=== PATIENT | male | born 1940 | race Caucasian/White ===

== ENCOUNTER 2017-05-18 09:19 | Inpatient (IN) | payer OTHER, MEDICARE ==
[2017-05-18] VITALS (7 sets, daily range): BP systolic 127–158; BP diastolic 69–80
[~2017-05-18] VITALS: Ht 188 cm; Wt 104.5 kg
[~2017-05-18 09:19] MED LIST: ALLO100T PO; ASPI81TA52 PO; ATEN-54 PO; CHOL400T32 PO; LISI-604 PO; LOVA40TA2 PO; MULT-38 PO; [UNRECOGNIZED DRUG - CODE] PO
[2017-05-18 10:10] LABS: BASOPHILS % (AUTO) 0.1 % (0-1); EOSINOPHILS # (AUTO) 0.1 X10'3 (0-0.9); EOSINOPHILS % (AUTO) 1.9 % (0-6); HEMATOCRIT 37.7 % (42.0-52.0); HEMOGLOBIN 12.5 g/dl (14.0-17.9); LYMPHOCYTES # (AUTO) 0.5 X10'3 (1.1-4.8); LYMPHOCYTES % (AUTO) 9.6 % (21-51); MEAN CORPUSCULAR HEMOGLOBIN 31.5 PG (27.0-31.0); MEAN CORPUSCULAR HGB CONC 33.1 % (33.0-36.5); MEAN PLATELET VOLUME 7.5 FL (7.4-10.4); MONOCYTES # (AUTO) 0.4 X10'3 (0-0.9); MONOCYTES % (AUTO) 7.4 % (2-12); PLATELET COUNT 231 X10'3 (140-440); RED BLOOD COUNT 3.97 X10'6 (4.70-6.10); RED CELL DISTRIBUTION WIDTH 13.9 % (11.5-14.5); WHITE BLOOD COUNT 4.9 X10'3 (4.5-11.0)
[2017-05-18 10:15] LABS: ALANINE AMINOTRANSFERASE 22 U/L (12-78); ALBUMIN 2.9 G/DL (3.4-5.0); ALBUMIN/GLOBULIN RATIO 0.9 (1.1-1.5); ALKALINE PHOSPHATASE 64 IU/L (46-116); ANION GAP 7 (8-16); ASPARTATE AMINO TRANSFERASE 20 U/L (10-37); BILIRUBIN,TOTAL 0.5 MG/DL (0.1-1.0); BLOOD UREA NITROGEN 14 MG/DL (7-18); BUN/CREATININE RATIO 10.9 (5.4-32.0); CALCIUM 8.4 MG/DL (8.5-10.1); CHLORIDE 90 MMOL/L (99-107); CREATININE 1.29 MG/DL (0.60-1.10); GLUCOSE 152 MG/DL (70-104); POTASSIUM 5.2 MMOL/L (3.5-5.1); SODIUM 123 MMOL/L (135-145); TOTAL CARBON DIOXIDE 26.2 MMOL/L (24-32); TOTAL PROTEIN 6.2 G/DL (6.4-8.2); eGFR 54 ML/MIN
[2017-05-18 10:16] LABS: TROPONIN I < 0.04 NG/ML (0.0-0.05)
[2017-05-18 10:50] LABS: PARTIAL THROMBOPLASTIN TIME 30 SECONDS (22-32); PROTHROMBIN TIME 10.3 SECONDS (9.0-12.0)
[2017-05-18] MEDS: normal saline 1000ml 1,000 ML IV SCH (12:37)
[2017-05-18] MEDS ORDERED: magnesium 4gm in 100ml NS 100 ML IV PRN (12:40)
[2017-05-18] MEDS ORDERED: magnesium 2GM in 50ml NS 50 ML IV PRN (12:40)
[2017-05-18] MEDS ORDERED: magnesium hydroxide 30ml (MOM) UD suspension PO PRN (12:40)
[2017-05-18] MEDS ORDERED: acetaminophen 325mg tablet PO PRN ×2 (12:40→12:55)
[2017-05-18] MEDS ORDERED: mag hydrox/Alum hydrox/simeth 30ml oral suspension PO PRN (12:40)
[2017-05-18] MEDS ORDERED: ondansetron/PF 4mg/2ml inj IV PRN (12:40)
[2017-05-18] MEDS ORDERED: potassium Cl 20 mEq SR tablet PO PRN ×2 (12:40)
[2017-05-18] MEDS ORDERED: potassium Cl 40MEQ/NS 500ml 500 ML IV PRN ×2 (12:40)
[2017-05-18] MEDS ORDERED: magnesium Cl slow-release 64mg tablet PO PRN (12:40)
[2017-05-18] MEDS ORDERED: sodium polystyrene sulfonate 15gm/60ml oral suspension PO ONE (12:55)
[2017-05-18 13:18] LABS: ALBUMIN 2.8 G/DL (3.4-5.0); ANION GAP 5 (8-16); BLOOD UREA NITROGEN 13 MG/DL (7-18); BUN/CREATININE RATIO 10.6 (5.4-32.0); CALCIUM 8.5 MG/DL (8.5-10.1); CHLORIDE 90 MMOL/L (99-107); CREATININE 1.23 MG/DL (0.60-1.10); GLUCOSE 128 MG/DL (70-104); POTASSIUM 5.1 MMOL/L (3.5-5.1); SODIUM 123 MMOL/L (135-145); TOTAL CARBON DIOXIDE 27.8 MMOL/L (24-32); eGFR 57 ML/MIN
[2017-05-18 13:37] LABS: OSMOLALITY 255 MOSM/K (280-300)
[2017-05-18] MEDS: furosemide 20MG tablet PO SCH (14:00)
[2017-05-18] MEDS: metoprolol succinate 25mg (24-HOUR) SR. Tablet PO SCH (21:18)
[2017-05-18] MEDS: atorvastatin 10mg tablet PO SCH (21:18)
[2017-05-18 21:29] LABS: ALBUMIN 3.1 G/DL (3.4-5.0); ANION GAP 7 (8-16); BLOOD UREA NITROGEN 12 MG/DL (7-18); BUN/CREATININE RATIO 9.5 (5.4-32.0); CALCIUM 8.7 MG/DL (8.5-10.1); CHLORIDE 89 MMOL/L (99-107); CREATININE 1.26 MG/DL (0.60-1.10); GLUCOSE 104 MG/DL (70-104); POTASSIUM 4.5 MMOL/L (3.5-5.1); SODIUM 123 MMOL/L (135-145); TOTAL CARBON DIOXIDE 26.7 MMOL/L (24-32); eGFR 55 ML/MIN
[2017-05-19] VITALS (10 sets, daily range): BP systolic 121–168; BP diastolic 63–94
[2017-05-19] MEDS: normal saline 1000ml 1,000 ML IV SCH ×2 (02:48→16:53)
[2017-05-19 05:35] LABS: BASOPHILS % (AUTO) 0.1 % (0-1); EOSINOPHILS % (AUTO) 0 % (0-6); HEMATOCRIT 34.5 % (42.0-52.0); HEMOGLOBIN 11.6 g/dl (14.0-17.9); LYMPHOCYTES # (AUTO) 0.6 X10'3 (1.1-4.8); LYMPHOCYTES % (AUTO) 9.2 % (21-51); MEAN CORPUSCULAR HEMOGLOBIN 31.5 PG (27.0-31.0); MEAN CORPUSCULAR HGB CONC 33.6 % (33.0-36.5); MEAN CORPUSCULAR VOLUME 93.8 FL (78-98); MEAN PLATELET VOLUME 7.2 FL (7.4-10.4); MONOCYTES # (AUTO) 0.6 X10'3 (0-0.9); MONOCYTES % (AUTO) 10.2 % (2-12); NEUTROPHILS # (AUTO) 4.9 X10'3 (1.8-7.7); NEUTROPHILS % (AUTO) 80.5 % (42-75); PLATELET COUNT 252 X10'3 (140-440); RED BLOOD COUNT 3.67 X10'6 (4.70-6.10); RED CELL DISTRIBUTION WIDTH 13.4 % (11.5-14.5); WHITE BLOOD COUNT 6.1 X10'3 (4.5-11.0)
[2017-05-19 05:52] LABS: ALANINE AMINOTRANSFERASE 18 U/L (12-78); ALBUMIN 2.8 G/DL (3.4-5.0); ALBUMIN/GLOBULIN RATIO 0.9 (1.1-1.5); ALKALINE PHOSPHATASE 61 IU/L (46-116); ANION GAP 8 (8-16); ASPARTATE AMINO TRANSFERASE 22 U/L (10-37); BILIRUBIN,TOTAL 0.5 MG/DL (0.1-1.0); BLOOD UREA NITROGEN 13 MG/DL (7-18); BUN/CREATININE RATIO 10.6 (5.4-32.0); CALCIUM 8.4 MG/DL (8.5-10.1); CHLORIDE 90 MMOL/L (99-107); CREATININE 1.23 MG/DL (0.60-1.10); GLUCOSE 100 MG/DL (70-104); MAGNESIUM 1.5 MG/DL (1.5-2.4); POTASSIUM 4.6 MMOL/L (3.5-5.1); SODIUM 125 MMOL/L (135-145); TOTAL CARBON DIOXIDE 26.7 MMOL/L (24-32); TOTAL PROTEIN 5.8 G/DL (6.4-8.2); eGFR 57 ML/MIN
[2017-05-19] MEDS: K and/or MAG REPLACEMENT MC SCH (07:42)
[2017-05-19] MEDS: furosemide 20MG tablet PO SCH (07:43)
[2017-05-19] MEDS: cholecalciferol (vitamin D) 400 unit tablet PO SCH (07:43)
[2017-05-19] MEDS: aspirin 81mg tablet.DR PO SCH (07:43)
[2017-05-19] MEDS: allopurinol 100mg tablet PO SCH (07:43)
[2017-05-19] MEDS: multivitamins, therapeutics tablet PO SCH (07:43)
[2017-05-19 11:12] LABS: CLARITY,URINE CLEAR (Clear); COLOR,URINE YELLOW (Yellow); GLUCOSE, URINE NEGATIVE (Neg); KETONES,URINE NEGATIVE (Neg); LEUKOCYTE ESTERASE ,URINE NEGATIVE (Neg); NITRITES, URINE NEGATIVE (Neg); OCCULT BLOOD,URINE NEGATIVE (Neg); PROTEIN,URINE NEGATIVE (Neg); UROBILINOGEN,URINE 0.2 E.U/dL (0.2-1.0)
[2017-05-19 11:15] LABS: UA COLLECTION TYPE NON-SPECIFIED
[2017-05-19 11:24] LABS: OSMOLALITY UA 354 MOSM/K (50-1400)
[2017-05-19 11:27] LABS: SODIUM,URINE RANDOM 90 MEQ/L
[2017-05-19 13:51] LABS: ALBUMIN 2.9 G/DL (3.4-5.0); ANION GAP 8 (8-16); BLOOD UREA NITROGEN 13 MG/DL (7-18); BUN/CREATININE RATIO 11.4 (5.4-32.0); CALCIUM 8.8 MG/DL (8.5-10.1); CHLORIDE 89 MMOL/L (99-107); CREATININE 1.14 MG/DL (0.60-1.10); GLUCOSE 120 MG/DL (70-104); POTASSIUM 4.3 MMOL/L (3.5-5.1); SODIUM 123 MMOL/L (135-145); TOTAL CARBON DIOXIDE 26.5 MMOL/L (24-32); eGFR 62 ML/MIN
[2017-05-19] MEDS ORDERED: lisinopril 5mg tablet PO SCH (17:50)
[2017-05-19] MEDS: metoprolol succinate 25mg (24-HOUR) SR. Tablet PO SCH (20:07)
[2017-05-19] MEDS: atorvastatin 10mg tablet PO SCH (20:07)
[2017-05-19 21:40] LABS: ALBUMIN 2.8 G/DL (3.4-5.0); ANION GAP 7 (8-16); BLOOD UREA NITROGEN 13 MG/DL (7-18); BUN/CREATININE RATIO 10.8 (5.4-32.0); CALCIUM 8.8 MG/DL (8.5-10.1); CHLORIDE 91 MMOL/L (99-107); GLUCOSE 100 MG/DL (70-104); POTASSIUM 4.4 MMOL/L (3.5-5.1); SODIUM 127 MMOL/L (135-145); TOTAL CARBON DIOXIDE 29.2 MMOL/L (24-32); eGFR 58 ML/MIN
[2017-05-20 02:00] VITALS: BP 128/66
[2017-05-20 05:49] LABS: BASOPHILS % (AUTO) 0.1 % (0-1); EOSINOPHILS # (AUTO) 0.1 X10'3 (0-0.9); EOSINOPHILS % (AUTO) 1.5 % (0-6); HEMATOCRIT 33.4 % (42.0-52.0); HEMOGLOBIN 11.2 g/dl (14.0-17.9); LYMPHOCYTES # (AUTO) 0.5 X10'3 (1.1-4.8); MEAN CORPUSCULAR HEMOGLOBIN 31.8 PG (27.0-31.0); MEAN CORPUSCULAR HGB CONC 33.5 % (33.0-36.5); MEAN CORPUSCULAR VOLUME 94.8 FL (78-98); MEAN PLATELET VOLUME 7.4 FL (7.4-10.4); MONOCYTES # (AUTO) 0.7 X10'3 (0-0.9); MONOCYTES % (AUTO) 13.7 % (2-12); NEUTROPHILS % (AUTO) 75.7 % (42-75); PLATELET COUNT 276 X10'3 (140-440); RED BLOOD COUNT 3.52 X10'6 (4.70-6.10); RED CELL DISTRIBUTION WIDTH 13.9 % (11.5-14.5); WHITE BLOOD COUNT 5.3 X10'3 (4.5-11.0)
[2017-05-20 06:15] LABS: ALANINE AMINOTRANSFERASE 16 U/L (12-78); ALBUMIN 2.7 G/DL (3.4-5.0); ALBUMIN/GLOBULIN RATIO 0.9 (1.1-1.5); ALKALINE PHOSPHATASE 60 IU/L (46-116); ANION GAP 8 (8-16); ASPARTATE AMINO TRANSFERASE 19 U/L (10-37); BILIRUBIN,TOTAL 0.5 MG/DL (0.1-1.0); BLOOD UREA NITROGEN 11 MG/DL (7-18); CALCIUM 8.7 MG/DL (8.5-10.1); CHLORIDE 90 MMOL/L (99-107); GLUCOSE 113 MG/DL (70-104); MAGNESIUM 1.6 MG/DL (1.5-2.4); POTASSIUM 4.1 MMOL/L (3.5-5.1); SODIUM 125 MMOL/L (135-145); TOTAL CARBON DIOXIDE 26.8 MMOL/L (24-32); TOTAL PROTEIN 5.8 G/DL (6.4-8.2); eGFR 65 ML/MIN
[2017-05-20 07:00] VITALS: BP 156/75
[2017-05-20] MEDS: furosemide 20MG tablet PO SCH (08:20)
[2017-05-20] MEDS: allopurinol 100mg tablet PO SCH (08:20)
[2017-05-20] MEDS: cholecalciferol (vitamin D) 400 unit tablet PO SCH (08:20)
[2017-05-20] MEDS: multivitamins, therapeutics tablet PO SCH (08:20)
[2017-05-20] MEDS: aspirin 81mg tablet.DR PO SCH (08:20)
[2017-05-20] MEDS: K and/or MAG REPLACEMENT MC SCH (08:21)
[2017-05-20] MEDS: normal saline 1000ml 1,000 ML IV SCH (08:27)
[2017-05-20 11:00] VITALS: BP 161/79
[2017-05-20 13:35] LABS: ALBUMIN 2.8 G/DL (3.4-5.0); ANION GAP 8 (8-16); BLOOD UREA NITROGEN 12 MG/DL (7-18); BUN/CREATININE RATIO 10.4 (5.4-32.0); CALCIUM 8.8 MG/DL (8.5-10.1); CHLORIDE 92 MMOL/L (99-107); CREATININE 1.15 MG/DL (0.60-1.10); GLUCOSE 120 MG/DL (70-104); SODIUM 127 MMOL/L (135-145); eGFR 61 ML/MIN
[2017-05-20 18:00] VITALS: BP 151/78
[2017-05-20] MEDS: atorvastatin 10mg tablet PO SCH (20:27)
[2017-05-20] MEDS: metoprolol succinate 25mg (24-HOUR) SR. Tablet PO SCH (20:27)
[2017-05-20] MEDS: sodium chloride 1gm tablet PO SCH ×2 (21:00→22:19)
[2017-05-20 22:00] VITALS: BP 130/76
[2017-05-20 22:39] LABS: ALBUMIN 2.7 G/DL (3.4-5.0); ANION GAP 8 (8-16); BLOOD UREA NITROGEN 13 MG/DL (7-18); CALCIUM 8.7 MG/DL (8.5-10.1); CHLORIDE 93 MMOL/L (99-107); CREATININE 1.08 MG/DL (0.60-1.10); GLUCOSE 99 MG/DL (70-104); POTASSIUM 4.1 MMOL/L (3.5-5.1); SODIUM 127 MMOL/L (135-145); eGFR 66 ML/MIN
[2017-05-21 02:00] VITALS: BP 133/63
[2017-05-21 06:00] VITALS: BP 123/63
[2017-05-21 06:33] LABS: BASOPHILS % (AUTO) 0 % (0-1); EOSINOPHILS # (AUTO) 0.1 X10'3 (0-0.9); EOSINOPHILS % (AUTO) 1.3 % (0-6); HEMATOCRIT 32.4 % (42.0-52.0); HEMOGLOBIN 10.7 g/dl (14.0-17.9); LYMPHOCYTES # (AUTO) 0.6 X10'3 (1.1-4.8); LYMPHOCYTES % (AUTO) 7.5 % (21-51); MEAN CORPUSCULAR HEMOGLOBIN 31.3 PG (27.0-31.0); MEAN CORPUSCULAR VOLUME 94.7 FL (78-98); MEAN PLATELET VOLUME 7.1 FL (7.4-10.4); MONOCYTES # (AUTO) 0.8 X10'3 (0-0.9); NEUTROPHILS % (AUTO) 80.2 % (42-75); PLATELET COUNT 294 X10'3 (140-440); RED BLOOD COUNT 3.42 X10'6 (4.70-6.10); RED CELL DISTRIBUTION WIDTH 13.9 % (11.5-14.5); WHITE BLOOD COUNT 7.5 X10'3 (4.5-11.0)
[2017-05-21 07:01] LABS: ALANINE AMINOTRANSFERASE 17 U/L (12-78); ALBUMIN 2.5 G/DL (3.4-5.0); ALBUMIN/GLOBULIN RATIO 0.8 (1.1-1.5); ALKALINE PHOSPHATASE 62 IU/L (46-116); ANION GAP 8 (8-16); ASPARTATE AMINO TRANSFERASE 15 U/L (10-37); BILIRUBIN,TOTAL 0.9 MG/DL (0.1-1.0); BLOOD UREA NITROGEN 12 MG/DL (7-18); BUN/CREATININE RATIO 10.8 (5.4-32.0); CALCIUM 8.5 MG/DL (8.5-10.1); CHLORIDE 94 MMOL/L (99-107); CREATININE 1.11 MG/DL (0.60-1.10); GLUCOSE 88 MG/DL (70-104); MAGNESIUM 1.5 MG/DL (1.5-2.4); POTASSIUM 3.9 MMOL/L (3.5-5.1); SODIUM 127 MMOL/L (135-145); TOTAL PROTEIN 5.7 G/DL (6.4-8.2); eGFR 64 ML/MIN
[2017-05-21] MEDS: K and/or MAG REPLACEMENT MC SCH (08:00)
[2017-05-21] MEDS: cholecalciferol (vitamin D) 400 unit tablet PO SCH (08:28)
[2017-05-21] MEDS: sodium chloride 1gm tablet PO SCH (08:28)
[2017-05-21] MEDS: allopurinol 100mg tablet PO SCH (08:28)
[2017-05-21] MEDS: multivitamins, therapeutics tablet PO SCH (08:28)
[2017-05-21] MEDS: aspirin 81mg tablet.DR PO SCH (08:28)
[2017-05-21] MEDS ORDERED: SODI1TAB2 PO (11:14)
== END 2017-05-21 12:35 | disposition home or self-care (01) | DRG 644 ==
LOC: ER 09:20 → ED HOLD 12:37 → PCU 3S 13:45
PROVIDERS: ADMIT Internal Medicine; ATTEND Internal Medicine
DX: E22.2 Syndrome of inappropriate secretion of antidiuretic hormone (principal); I50.32 Chronic diastolic (congestive) heart failure; E87.5 Hyperkalemia; I11.0 Hypertensive heart disease with heart failure; E11.9 Type 2 diabetes mellitus without complications; R29.6 Repeated falls; N28.9 Disorder of kidney and ureter, unspecified; Z79.899 Other long term (current) drug therapy; Z79.82 Long term (current) use of aspirin; Z88.0 Allergy status to penicillin
CPT/HCPCS: 36415; 70450; 71010; 80048; 80053; 81003; 83735; 83880; 83930; 83935; 84300; 84484; 85025; 85610; 85730; 93005; 93880; 99285; J7030

== ENCOUNTER 2017-08-11 23:48 | Inpatient (IN) | payer MEDICARE, OTHER ==
[~2017-08-11] VITALS: Ht 188 cm; Wt 102.0 kg
[~2017-08-11 23:48] MED LIST changes: +SODI1TAB2 PO
[2017-08-12 01:59] LABS: INR 1.1 INR; PARTIAL THROMBOPLASTIN TIME 23 SECONDS (22-32)
[2017-08-12 02:01] LABS: ALANINE AMINOTRANSFERASE 30 U/L (12-78); ALBUMIN 2.7 G/DL (3.4-5.0); ALBUMIN/GLOBULIN RATIO 1.1 (1.1-1.5); ALKALINE PHOSPHATASE 55 IU/L (46-116); ANION GAP 8 (8-16); ASPARTATE AMINO TRANSFERASE 48 U/L (10-37); BILIRUBIN,TOTAL 0.6 MG/DL (0.1-1.0); BLOOD UREA NITROGEN 39 MG/DL (7-18); BUN/CREATININE RATIO 21.3 (5.4-32.0); CALCIUM 9.2 MG/DL (8.5-10.1); CHLORIDE 91 MMOL/L (99-107); CREATININE 1.83 MG/DL (0.60-1.10); GLUCOSE 157 MG/DL (70-104); MAGNESIUM 1.6 MG/DL (1.5-2.4); SODIUM 129 MMOL/L (135-145); TOTAL CARBON DIOXIDE 30.1 MMOL/L (24-32); TOTAL PROTEIN 5.2 G/DL (6.4-8.2); eGFR 36 ML/MIN
[2017-08-12 02:04] LABS: BASOPHILS % (AUTO) 0 % (0-1); EOSINOPHILS # (AUTO) 0.2 X10'3 (0-0.9); EOSINOPHILS % (AUTO) 1.3 % (0-6); HEMOGLOBIN 10.9 g/dl (14.0-17.9); LYMPHOCYTES # (AUTO) 0.4 X10'3 (1.1-4.8); LYMPHOCYTES % (AUTO) 2.6 % (21-51); MEAN CORPUSCULAR HEMOGLOBIN 31.6 PG (27.0-31.0); MEAN CORPUSCULAR HGB CONC 34.1 % (33.0-36.5); MEAN CORPUSCULAR VOLUME 92.6 FL (78-98); MEAN PLATELET VOLUME 8.1 FL (7.4-10.4); MONOCYTES # (AUTO) 0.5 X10'3 (0-0.9); MONOCYTES % (AUTO) 3.1 % (2-12); NEUTROPHILS # (AUTO) 15.6 X10'3 (1.8-7.7); PLATELET COUNT 141 X10'3 (140-440); POTASSIUM 2.9 MMOL/L (3.5-5.1); RED BLOOD COUNT 3.45 X10'6 (4.70-6.10); RED CELL DISTRIBUTION WIDTH 15.2 % (11.5-14.5); WHITE BLOOD COUNT 16.8 X10'3 (4.5-11.0)
[2017-08-12] MEDS ORDERED: normal saline 1000ML IV soln IVB ONE (03:05)
[2017-08-12] MEDS ORDERED: potassium Cl 20 mEq SR tablet PO ONE (03:40)
[2017-08-12] MEDS ORDERED: acetaminophen 325mg tablet PO PRN (04:10)
[2017-08-12] MEDS ORDERED: ondansetron/PF 4mg/2ml inj IV PRN (04:10)
[2017-08-12] MEDS ORDERED: potassium Cl 20 mEq SR tablet PO PRN ×2 (04:15)
[2017-08-12] MEDS ORDERED: potassium Cl 40MEQ/NS 500ml 500 ML IV PRN ×2 (04:15)
[2017-08-12] MEDS ORDERED: CHOL100017 (04:24)
[2017-08-12] MEDS ORDERED: SERT25TA PO (04:24)
[2017-08-12 04:34] LABS: CLARITY,URINE SLIGHTLY CLOUDY (Clear); COLOR,URINE YELLOW (Yellow); GLUCOSE, URINE NEGATIVE (Neg); KETONES,URINE NEGATIVE (Neg); LEUKOCYTE ESTERASE ,URINE NEGATIVE (Neg); NITRITES, URINE NEGATIVE (Neg); OCCULT BLOOD,URINE TRACE-LYSED (Neg); PROTEIN,URINE 30 mg/dl (Neg); UROBILINOGEN,URINE 0.2 E.U/dL (0.2-1.0)
[2017-08-12 04:35] LABS: UA COLLECTION TYPE FOLEY CATH
[2017-08-12] MEDS: normal saline 1000ml 1,000 ML IV SCH ×3 (04:41→22:08)
[2017-08-12 04:44] LABS: AMORPHOUS URATES 1+; BACTERIA,URINE NONE SEEN /HPF (Neg); HYALINE CASTS 0-3 /LPF (NEGATIVE); MUCUS STRANDS FEW /LPF (Neg); RBC,URINE 0-2 /HPF (0-2); RENAL CELLS, URINE FEW /HPF; SQUAMOUS EPITHELIAL CELL,UR FEW /LPF (FEW); WBC,URINE 0-4 /HPF (0-4)
[2017-08-12 04:45] LABS: TRANSITIONAL EPI CELLS,URINE FEW /HPF
[2017-08-12 04:47] LABS: PHOSPHORUS 2.4 MG/DL (2.3-4.5)
[2017-08-12 06:58] LABS: BASOPHILS % (AUTO) 0 % (0-1); EOSINOPHILS # (AUTO) 0.3 X10'3 (0-0.9); EOSINOPHILS % (AUTO) 1.7 % (0-6); HEMATOCRIT 30.1 % (42.0-52.0); HEMOGLOBIN 10.2 g/dl (14.0-17.9); LYMPHOCYTES # (AUTO) 0.5 X10'3 (1.1-4.8); LYMPHOCYTES % (AUTO) 2.8 % (21-51); MEAN CORPUSCULAR HEMOGLOBIN 31.4 PG (27.0-31.0); MEAN CORPUSCULAR HGB CONC 33.9 % (33.0-36.5); MEAN CORPUSCULAR VOLUME 92.7 FL (78-98); MEAN PLATELET VOLUME 7.7 FL (7.4-10.4); MONOCYTES # (AUTO) 0.5 X10'3 (0-0.9); MONOCYTES % (AUTO) 2.7 % (2-12); NEUTROPHILS # (AUTO) 15.6 X10'3 (1.8-7.7); NEUTROPHILS % (AUTO) 92.8 % (42-75); PLATELET COUNT 123 X10'3 (140-440); RED BLOOD COUNT 3.25 X10'6 (4.70-6.10); WHITE BLOOD COUNT 16.8 X10'3 (4.5-11.0)
[2017-08-12 08:23] LABS: ALBUMIN 1.9 G/DL (3.4-5.0); ANION GAP 6 (8-16); BLOOD UREA NITROGEN 40 MG/DL (7-18); BUN/CREATININE RATIO 21.2 (5.4-32.0); CALCIUM 9.4 MG/DL (8.5-10.1); CHLORIDE 92 MMOL/L (99-107); CREATININE 1.89 MG/DL (0.60-1.10); GLUCOSE 135 MG/DL (70-104); POTASSIUM 3.4 MMOL/L (3.5-5.1); SODIUM 129 MMOL/L (135-145); TOTAL CARBON DIOXIDE 31.2 MMOL/L (24-32); eGFR 35 ML/MIN
[2017-08-12] MEDS: pantoprazole 40 MG vial IV SCH ×2 (08:53→19:35)
[2017-08-12 16:49] LABS: BASOPHILS % (AUTO) 0.1 % (0-1); EOSINOPHILS # (AUTO) 0.2 X10'3 (0-0.9); EOSINOPHILS % (AUTO) 1.4 % (0-6); HEMATOCRIT 28.1 % (42.0-52.0); HEMOGLOBIN 9.6 g/dl (14.0-17.9); LYMPHOCYTES # (AUTO) 0.5 X10'3 (1.1-4.8); LYMPHOCYTES % (AUTO) 3.4 % (21-51); MEAN CORPUSCULAR HEMOGLOBIN 31.4 PG (27.0-31.0); MEAN CORPUSCULAR VOLUME 92.3 FL (78-98); MONOCYTES # (AUTO) 0.4 X10'3 (0-0.9); NEUTROPHILS # (AUTO) 13.4 X10'3 (1.8-7.7); NEUTROPHILS % (AUTO) 92.1 % (42-75); PLATELET COUNT 108 X10'3 (140-440); RED BLOOD COUNT 3.04 X10'6 (4.70-6.10); WHITE BLOOD COUNT 14.5 X10'3 (4.5-11.0)
[2017-08-12 17:45] VITALS: BP 128/79
[2017-08-12] MEDS: nutritional supplement (Nutren 2.0) 250ml bottle PO SCH (18:00)
[2017-08-12 22:00] VITALS: BP 129/91
[2017-08-13 05:00] VITALS: BP 136/83
[2017-08-13 06:15] LABS: BASOPHILS % (AUTO) 0 % (0-1); EOSINOPHILS # (AUTO) 0.1 X10'3 (0-0.9); EOSINOPHILS % (AUTO) 1.2 % (0-6); HEMATOCRIT 25.1 % (42.0-52.0); HEMOGLOBIN 8.8 g/dl (14.0-17.9); LYMPHOCYTES # (AUTO) 0.3 X10'3 (1.1-4.8); LYMPHOCYTES % (AUTO) 2.4 % (21-51); MEAN CORPUSCULAR HEMOGLOBIN 31.9 PG (27.0-31.0); MEAN CORPUSCULAR HGB CONC 34.9 % (33.0-36.5); MEAN CORPUSCULAR VOLUME 91.4 FL (78-98); MEAN PLATELET VOLUME 7.8 FL (7.4-10.4); MONOCYTES # (AUTO) 0.4 X10'3 (0-0.9); MONOCYTES % (AUTO) 3.4 % (2-12); NEUTROPHILS # (AUTO) 11.5 X10'3 (1.8-7.7); PLATELET COUNT 93 X10'3 (140-440); RED BLOOD COUNT 2.75 X10'6 (4.70-6.10); RED CELL DISTRIBUTION WIDTH 16.3 % (11.5-14.5); WHITE BLOOD COUNT 12.4 X10'3 (4.5-11.0)
[2017-08-13 06:36] LABS: ALBUMIN 2.3 G/DL (3.4-5.0); ANION GAP 4 (8-16); BLOOD UREA NITROGEN 39 MG/DL (7-18); BUN/CREATININE RATIO 23.2 (5.4-32.0); CALCIUM 9.2 MG/DL (8.5-10.1); CHLORIDE 99 MMOL/L (99-107); CREATININE 1.68 MG/DL (0.60-1.10); GLUCOSE 125 MG/DL (70-104); MAGNESIUM 1.7 MG/DL (1.5-2.4); SODIUM 133 MMOL/L (135-145); TOTAL CARBON DIOXIDE 30.5 MMOL/L (24-32); eGFR 40 ML/MIN
[2017-08-13] MEDS ORDERED: PEG 3350/Na sulf,bicarb,Cl/KCl oral sol 4 liter bottle PO ONE (07:30)
[2017-08-13] MEDS: pantoprazole 40 MG vial IV SCH ×2 (07:56→19:52)
[2017-08-13] MEDS: nutritional supplement (Nutren 2.0) 250ml bottle PO SCH ×3 (08:00→18:00)
[2017-08-13 10:00] VITALS: BP 146/81
[2017-08-13] MEDS: normal saline 1000ml 1,000 ML IV SCH (10:19)
[2017-08-13 17:24] LABS: GLUCOSE, URINE NEGATIVE (Neg); KETONES,URINE NEGATIVE (Neg); LEUKOCYTE ESTERASE ,URINE MODERATE (Neg); NITRITES, URINE POSITIVE (Neg); OCCULT BLOOD,URINE LARGE (Neg); PROTEIN,URINE >=300 mg/dl (Neg)
[2017-08-13 17:31] LABS: CLARITY,URINE Cloudy (Clear); COLOR,URINE Red (Yellow)
[2017-08-13 17:34] LABS: BACTERIA,URINE FEW /HPF (Neg); RBC,URINE TNTC /HPF (0-2); SQUAMOUS EPITHELIAL CELL,UR NONE SEEN /LPF (FEW)
[2017-08-13 18:00] VITALS: BP 155/84
[2017-08-13 18:28] LABS: UA COLLECTION TYPE FOLEY CATH
[2017-08-13 22:00] VITALS: BP 163/85
[2017-08-14 06:00] VITALS: BP 147/78
[2017-08-14 07:02] LABS: BASOPHILS % (AUTO) 0 % (0-1); EOSINOPHILS # (AUTO) 0.1 X10'3 (0-0.9); EOSINOPHILS % (AUTO) 1.2 % (0-6); HEMATOCRIT 24.9 % (42.0-52.0); HEMOGLOBIN 8.5 g/dl (14.0-17.9); LYMPHOCYTES # (AUTO) 0.3 X10'3 (1.1-4.8); LYMPHOCYTES % (AUTO) 2.8 % (21-51); MEAN CORPUSCULAR HEMOGLOBIN 31.8 PG (27.0-31.0); MEAN CORPUSCULAR HGB CONC 34.1 % (33.0-36.5); MEAN CORPUSCULAR VOLUME 93.1 FL (78-98); MEAN PLATELET VOLUME 7.2 FL (7.4-10.4); MONOCYTES # (AUTO) 0.3 X10'3 (0-0.9); MONOCYTES % (AUTO) 3.1 % (2-12); NEUTROPHILS # (AUTO) 10.1 X10'3 (1.8-7.7); NEUTROPHILS % (AUTO) 92.9 % (42-75); PLATELET COUNT 96 X10'3 (140-440); RED BLOOD COUNT 2.67 X10'6 (4.70-6.10); RED CELL DISTRIBUTION WIDTH 16.6 % (11.5-14.5); WHITE BLOOD COUNT 10.9 X10'3 (4.5-11.0)
[2017-08-14 07:14] LABS: ALBUMIN 2.2 G/DL (3.4-5.0); ANION GAP 8 (8-16); BLOOD UREA NITROGEN 30 MG/DL (7-18); BUN/CREATININE RATIO 22.2 (5.4-32.0); CALCIUM 8.7 MG/DL (8.5-10.1); CHLORIDE 99 MMOL/L (99-107); CREATININE 1.35 MG/DL (0.60-1.10); GLUCOSE 111 MG/DL (70-104); MAGNESIUM 1.6 MG/DL (1.5-2.4); POTASSIUM 3.2 MMOL/L (3.5-5.1); SODIUM 136 MMOL/L (135-145); TOTAL CARBON DIOXIDE 29.1 MMOL/L (24-32); eGFR 51 ML/MIN
[2017-08-14] MEDS: nutritional supplement (Nutren 2.0) 250ml bottle PO SCH ×3 (08:00→18:00)
[2017-08-14] MEDS: pantoprazole 40 MG vial IV SCH ×2 (08:28→21:12)
[2017-08-14 10:00] VITALS: BP 157/77
[2017-08-14] MEDS ORDERED: levoFLOXACIN-Levaquin 500mg/D5 100 ML IV ONE (12:00)
[2017-08-14] MEDS: normal saline 1000ml 1,000 ML IV SCH ×2 (15:16→22:46)
[2017-08-14] MEDS ORDERED: PEG 3350/Na sulf,bicarb,Cl/KCl oral sol 4 liter bottle PO ONE (16:00)
[2017-08-14 18:00] VITALS: BP 160/87
[2017-08-14 22:00] VITALS: BP 142/74
[2017-08-15] VITALS (17 sets, daily range): BP systolic 141–186; BP diastolic 69–103
[2017-08-15 05:46] LABS: BASOPHILS % (AUTO) 0 % (0-1); EOSINOPHILS # (AUTO) 0.1 X10'3 (0-0.9); EOSINOPHILS % (AUTO) 1.3 % (0-6); HEMATOCRIT 23.6 % (42.0-52.0); HEMOGLOBIN 8.2 g/dl (14.0-17.9); LYMPHOCYTES # (AUTO) 0.3 X10'3 (1.1-4.8); LYMPHOCYTES % (AUTO) 3.3 % (21-51); MEAN CORPUSCULAR HEMOGLOBIN 32.1 PG (27.0-31.0); MEAN CORPUSCULAR HGB CONC 34.8 % (33.0-36.5); MEAN CORPUSCULAR VOLUME 92.2 FL (78-98); MEAN PLATELET VOLUME 7.6 FL (7.4-10.4); MONOCYTES # (AUTO) 0.4 X10'3 (0-0.9); MONOCYTES % (AUTO) 3.8 % (2-12); NEUTROPHILS # (AUTO) 9.5 X10'3 (1.8-7.7); NEUTROPHILS % (AUTO) 91.6 % (42-75); PLATELET COUNT 104 X10'3 (140-440); RED BLOOD COUNT 2.56 X10'6 (4.70-6.10); RED CELL DISTRIBUTION WIDTH 16.4 % (11.5-14.5); WHITE BLOOD COUNT 10.3 X10'3 (4.5-11.0)
[2017-08-15 06:41] LABS: ALBUMIN 2.1 G/DL (3.4-5.0); ANION GAP 10 (8-16); BLOOD UREA NITROGEN 24 MG/DL (7-18); BUN/CREATININE RATIO 18.6 (5.4-32.0); CALCIUM 8.3 MG/DL (8.5-10.1); CHLORIDE 95 MMOL/L (99-107); CREATININE 1.29 MG/DL (0.60-1.10); GLUCOSE 97 MG/DL (70-104); MAGNESIUM 1.4 MG/DL (1.5-2.4); SODIUM 135 MMOL/L (135-145); TOTAL CARBON DIOXIDE 29.6 MMOL/L (24-32); eGFR 54 ML/MIN
[2017-08-15 06:43] LABS: POTASSIUM 2.5 MMOL/L (3.5-5.1)
[2017-08-15] MEDS ORDERED: magnesium 2GM in 50ml NS 50 ML IV PRN (07:40)
[2017-08-15] MEDS ORDERED: magnesium Cl slow-release 64mg tablet PO PRN (07:40)
[2017-08-15] MEDS ORDERED: magnesium 4gm in 100ml NS 100 ML IV PRN (07:40)
[2017-08-15] MEDS ORDERED: potassium Cl 40MEQ/NS 500ml 500 ML IV PRN (07:40)
[2017-08-15] MEDS: pantoprazole 40 MG vial IV SCH ×2 (07:47→20:40)
[2017-08-15] MEDS: levoFLOXACIN-Levaquin 500mg/D5 100 ML IV SCH (07:47)
[2017-08-15] MEDS: nutritional supplement (Nutren 2.0) 250ml bottle PO SCH ×3 (08:00→18:00)
[2017-08-15] MEDS: potassium Cl 40MEQ/NS 500ml 500 ML IV PRN ×2 (09:03→20:46)
[2017-08-15] MEDS ORDERED: MIDAZolam 5mg/ml 2ml vial ONE (12:50)
[2017-08-15] MEDS ORDERED: fentaNYL/PF 50MCG/1 ML 2ML syringe ONE (12:50)
[2017-08-15] MEDS ORDERED: lisinopril 10 MG tablet PO ONE (17:10)
[2017-08-15] MEDS ORDERED: hydrALAZINE 20mg/ml inj. IV ONE (17:10)
[2017-08-15] MEDS ORDERED: phenylephrine/cocoa butter (Preparation H) suppository RC PRN (17:15)
[2017-08-15] MEDS ORDERED: hydrocortisone acetate 25mg rectal suppository RC PRN ×2 (17:22)
[2017-08-15] MEDS: hydrALAZINE 20mg/ml inj. IV SCH (20:40)
[2017-08-16] MEDS: hydrALAZINE 20mg/ml inj. IV SCH ×4 (02:00→19:42)
[2017-08-16 06:00] VITALS: BP 157/80
[2017-08-16 06:26] LABS: BASOPHILS % (AUTO) 0.1 % (0-1); EOSINOPHILS # (AUTO) 0.1 X10'3 (0-0.9); EOSINOPHILS % (AUTO) 0.7 % (0-6); HEMATOCRIT 23.5 % (42.0-52.0); HEMOGLOBIN 8.2 g/dl (14.0-17.9); LYMPHOCYTES # (AUTO) 0.4 X10'3 (1.1-4.8); LYMPHOCYTES % (AUTO) 3.8 % (21-51); MEAN CORPUSCULAR HEMOGLOBIN 31.9 PG (27.0-31.0); MEAN CORPUSCULAR HGB CONC 34.7 % (33.0-36.5); MEAN CORPUSCULAR VOLUME 92.1 FL (78-98); MEAN PLATELET VOLUME 7.7 FL (7.4-10.4); MONOCYTES # (AUTO) 0.3 X10'3 (0-0.9); MONOCYTES % (AUTO) 3.6 % (2-12); NEUTROPHILS # (AUTO) 8.6 X10'3 (1.8-7.7); NEUTROPHILS % (AUTO) 91.8 % (42-75); PLATELET COUNT 112 X10'3 (140-440); RED BLOOD COUNT 2.55 X10'6 (4.70-6.10); RED CELL DISTRIBUTION WIDTH 15.9 % (11.5-14.5); WHITE BLOOD COUNT 9.4 X10'3 (4.5-11.0)
[2017-08-16 06:50] LABS: ALBUMIN 2.2 G/DL (3.4-5.0); ANION GAP 10 (8-16); BLOOD UREA NITROGEN 20 MG/DL (7-18); BUN/CREATININE RATIO 17.2 (5.4-32.0); CALCIUM 8.2 MG/DL (8.5-10.1); CHLORIDE 100 MMOL/L (99-107); CREATININE 1.16 MG/DL (0.60-1.10); GLUCOSE 90 MG/DL (70-104); MAGNESIUM 1.5 MG/DL (1.5-2.4); SODIUM 138 MMOL/L (135-145); TOTAL CARBON DIOXIDE 27.6 MMOL/L (24-32); eGFR 61 ML/MIN
[2017-08-16 06:53] LABS: POTASSIUM 2.9 MMOL/L (3.5-5.1)
[2017-08-16] MEDS: normal saline 1000ml 1,000 ML IV SCH ×4 (07:07→19:52)
[2017-08-16] MEDS: lisinopril 10 MG tablet PO SCH (08:36)
[2017-08-16] MEDS: potassium Cl 20 mEq SR tablet PO PRN ×3 (08:36→21:17)
[2017-08-16] MEDS: pantoprazole 40 MG vial IV SCH ×2 (08:36→19:42)
[2017-08-16] MEDS: levoFLOXACIN-Levaquin 500mg/D5 100 ML IV SCH (08:36)
[2017-08-16] MEDS: nutritional supplement (Nutren 2.0) 250ml bottle PO SCH ×3 (09:35→18:00)
[2017-08-16 10:00] VITALS: BP 101/61
[2017-08-16 18:43] VITALS: BP 146/77
[2017-08-16 19:47] VITALS: BP 156/85
[2017-08-16 22:01] VITALS: BP_SYST 116; BP_SYST 121; BP_SYST 137; BP_DIAS 68; BP_DIAS 72; BP_DIAS 82
[2017-08-16 22:02] VITALS: BP 137/82
[2017-08-17 02:39] VITALS: BP 150/85
[2017-08-17] MEDS: hydrALAZINE 20mg/ml inj. IV SCH ×4 (02:40→20:56)
[2017-08-17 05:30] LABS: BASOPHILS % (AUTO) 0 % (0-1); EOSINOPHILS # (AUTO) 0.2 X10'3 (0-0.9); EOSINOPHILS % (AUTO) 1.8 % (0-6); HEMATOCRIT 24.1 % (42.0-52.0); HEMOGLOBIN 8.4 g/dl (14.0-17.9); LYMPHOCYTES # (AUTO) 0.4 X10'3 (1.1-4.8); LYMPHOCYTES % (AUTO) 4.1 % (21-51); MEAN CORPUSCULAR HEMOGLOBIN 31.8 PG (27.0-31.0); MEAN CORPUSCULAR HGB CONC 34.8 % (33.0-36.5); MEAN CORPUSCULAR VOLUME 91.5 FL (78-98); MEAN PLATELET VOLUME 7.3 FL (7.4-10.4); MONOCYTES # (AUTO) 0.4 X10'3 (0-0.9); MONOCYTES % (AUTO) 3.9 % (2-12); NEUTROPHILS # (AUTO) 9.2 X10'3 (1.8-7.7); NEUTROPHILS % (AUTO) 90.2 % (42-75); PLATELET COUNT 121 X10'3 (140-440); RED BLOOD COUNT 2.63 X10'6 (4.70-6.10); RED CELL DISTRIBUTION WIDTH 16.6 % (11.5-14.5); WHITE BLOOD COUNT 10.2 X10'3 (4.5-11.0)
[2017-08-17 06:00] VITALS: BP 122/88
[2017-08-17 06:45] LABS: ALBUMIN 2.2 G/DL (3.4-5.0); ANION GAP 9 (8-16); BLOOD UREA NITROGEN 21 MG/DL (7-18); BUN/CREATININE RATIO 16.7 (5.4-32.0); CALCIUM 8.5 MG/DL (8.5-10.1); CHLORIDE 100 MMOL/L (99-107); CREATININE 1.26 MG/DL (0.60-1.10); GLUCOSE 136 MG/DL (70-104); MAGNESIUM 1.4 MG/DL (1.5-2.4); POTASSIUM 3.2 MMOL/L (3.5-5.1); SODIUM 136 MMOL/L (135-145); TOTAL CARBON DIOXIDE 26.7 MMOL/L (24-32); eGFR 55 ML/MIN
[2017-08-17] MEDS: nutritional supplement (Nutren 2.0) 250ml bottle PO SCH ×3 (08:00→20:49)
[2017-08-17] MEDS: levoFLOXACIN-Levaquin 500mg/D5 100 ML IV SCH (09:20)
[2017-08-17] MEDS: pantoprazole 40 MG vial IV SCH ×2 (09:20→20:56)
[2017-08-17] MEDS: lisinopril 10 MG tablet PO SCH (09:27)
[2017-08-17] MEDS: potassium Cl 20 mEq SR tablet PO PRN ×3 (09:32→23:22)
[2017-08-17 10:00] VITALS: BP_SYST 110; BP_SYST 121; BP_SYST 140; BP_DIAS 66; BP_DIAS 73; BP_DIAS 90
[2017-08-17 18:00] VITALS: BP 161/85
[2017-08-17] MEDS: normal saline 1000ml 1,000 ML IV SCH (20:56)
[2017-08-17 21:05] VITALS: BP 156/92
[2017-08-17 22:00] VITALS: BP 157/90
[2017-08-18 02:28] VITALS: BP 135/78
[2017-08-18] MEDS: hydrALAZINE 20mg/ml inj. IV SCH ×4 (02:28→19:56)
[2017-08-18] MEDS: normal saline 1000ml 1,000 ML IV SCH ×2 (05:35→19:56)
[2017-08-18 06:00] VITALS: BP 132/74
[2017-08-18] MEDS: nutritional supplement (Nutren 2.0) 250ml bottle PO SCH ×3 (08:00→18:00)
[2017-08-18] MEDS: levoFLOXACIN-Levaquin 500mg/D5 100 ML IV SCH (09:21)
[2017-08-18] MEDS: pantoprazole 40 MG vial IV SCH ×2 (09:21→19:56)
[2017-08-18] MEDS: lisinopril 10 MG tablet PO SCH (09:22)
[2017-08-18 10:00] VITALS: BP 153/81
[2017-08-18 18:30] VITALS: BP 165/85
[2017-08-18] MEDS: lactobacillus rhamnosus 10,000 MMU CELLS/CAPSULE PO SCH (19:56)
[2017-08-18 22:43] VITALS: BP 140/88
[2017-08-19] MEDS: hydrALAZINE 20mg/ml inj. IV SCH ×3 (02:00→13:17)
[2017-08-19 06:00] VITALS: BP 135/81
[2017-08-19] MEDS: levoFLOXACIN-Levaquin 500mg/D5 100 ML IV SCH (07:18)
[2017-08-19] MEDS: lisinopril 10 MG tablet PO SCH (07:18)
[2017-08-19] MEDS: lactobacillus rhamnosus 10,000 MMU CELLS/CAPSULE PO SCH (07:18)
[2017-08-19 08:00] VITALS: BP 135/81
[2017-08-19] MEDS: nutritional supplement (Nutren 2.0) 250ml bottle PO SCH ×2 (08:00→13:00)
[2017-08-19] MEDS: pantoprazole 40mg Tablet.DR PO SCH ×2 (08:07→16:31)
[2017-08-19] MEDS: normal saline 1000ml 1,000 ML IV SCH (09:26)
[2017-08-19 12:03] VITALS: BP 110/75
[2017-08-20] MEDS ORDERED: levoFLOXACIN 500mg tablet PO SCH (11:00)
== END 2017-08-19 17:00 | DRG 377 ==
LOC: ER 23:48 → ED HOLD 08-12 04:06 → EDBEDREQ 08-12 17:05 → ORTHO 4S 08-12 17:40
PROVIDERS: ADMIT Family Medicine; ATTEND Family Medicine
PROC: 0DBL8ZX Excision of Transverse Colon, Via Natural or Artificial Opening Endoscopic, Diagnostic (ICD-10-PCS; principal; 2017-08-15)
PROC: 0DBL8ZX Excision of Transverse Colon, Via Natural or Artificial Opening Endoscopic, Diagnostic (ICD-10-PCS; 2017-08-15)
DX: K92.2 Gastrointestinal hemorrhage, unspecified (principal); N17.0 Acute kidney failure with tubular necrosis; E43 Unspecified severe protein-calorie malnutrition; E11.22 Type 2 diabetes mellitus with diabetic chronic kidney disease; E22.2 Syndrome of inappropriate secretion of antidiuretic hormone; D64.9 Anemia, unspecified; E86.0 Dehydration; N39.0 Urinary tract infection, site not specified; S00.03XA Contusion of scalp, initial encounter; N18.4 Chronic kidney disease, stage 4 (severe); D62 Acute posthemorrhagic anemia; B96.4 Proteus (mirabilis) (morganii) as the cause of diseases classified elsewhere; E87.6 Hypokalemia; D18.1 Lymphangioma, any site; K64.8 Other hemorrhoids; D12.3 Benign neoplasm of transverse colon; K57.30 Diverticulosis of large intestine without perforation or abscess without bleeding; I12.9 Hypertensive chronic kidney disease with stage 1 through stage 4 chronic kidney disease, or unspecified chronic kidney disease; I95.1 Orthostatic hypotension; K63.5 Polyp of colon; N40.0 Benign prostatic hyperplasia without lower urinary tract symptoms; R29.6 Repeated falls; S51.811A Laceration without foreign body of right forearm, initial encounter; W18.39XA Other fall on same level, initial encounter; Z88.0 Allergy status to penicillin; Z79.899 Other long term (current) drug therapy; Z79.82 Long term (current) use of aspirin; Y92.091 Bathroom in other non-institutional residence as the place of occurrence of the external cause; Y93.01 Activity, walking, marching and hiking; Y99.8 Other external cause status; Z68.28 Body mass index [BMI] 28.0-28.9, adult
CPT/HCPCS: 36415; 45380; 45385; 70450; 71045; 80048; 80053; 81001; 83605; 83735; 84100; 84132; 84145; 85025; 85610; 85730; 86885; 86900; 86901; 87040; 87070; 87077; 87088; 87186; 93005; 96360; 97110; 97116; 97162; 97530; 99285; A4315; A4353; A4620; A6212; C9113; G0500; J0360; J1956; J2250; J3010; J3480; J7030

== ENCOUNTER 2017-09-04 11:17 | Inpatient (IN) | payer MEDICARE, OTHER ==
[~2017-09-04] VITALS: Ht 188 cm; Wt 94.9 kg
[~2017-09-04 11:17] MED LIST changes: -ALLO100T PO; -ATEN-54 PO; +CHOL100017; -LOVA40TA2 PO; +SERT25TA PO; -[UNRECOGNIZED DRUG - CODE] PO
[2017-09-04] MEDS ORDERED: normal saline 1000ML IV soln IVB ONE (11:45)
[2017-09-04 12:06] LABS: BASOPHILS % (AUTO) 0.1 % (0-1); EOSINOPHILS # (AUTO) 0.2 X10'3 (0-0.9); EOSINOPHILS % (AUTO) 1.7 % (0-6); HEMATOCRIT 23.7 % (42.0-52.0); HEMOGLOBIN 8.1 g/dl (14.0-17.9); LYMPHOCYTES # (AUTO) 0.4 X10'3 (1.1-4.8); LYMPHOCYTES % (AUTO) 2.9 % (21-51); MEAN CORPUSCULAR HEMOGLOBIN 32.7 PG (27.0-31.0); MEAN CORPUSCULAR HGB CONC 34.3 % (33.0-36.5); MEAN CORPUSCULAR VOLUME 95.3 FL (78-98); MEAN PLATELET VOLUME 7.7 FL (7.4-10.4); MONOCYTES # (AUTO) 0.5 X10'3 (0-0.9); MONOCYTES % (AUTO) 3.2 % (2-12); NEUTROPHILS # (AUTO) 13.2 X10'3 (1.8-7.7); NEUTROPHILS % (AUTO) 92.1 % (42-75); PLATELET COUNT 64 X10'3 (140-440); RED BLOOD COUNT 2.49 X10'6 (4.70-6.10); WHITE BLOOD COUNT 14.4 X10'3 (4.5-11.0)
[2017-09-04 12:20] LABS: ANISOCYTOSIS 2+; PLATELET ESTIMATE DECREASED; TOTAL CELLS COUNTED 100
[2017-09-04 12:21] LABS: POLYCHROMASIA FEW; SCHISTOCYTES FEW
[2017-09-04 12:32] LABS: ALANINE AMINOTRANSFERASE 68 U/L (12-78); ALBUMIN 2.5 G/DL (3.4-5.0); ALBUMIN/GLOBULIN RATIO 0.9 (1.1-1.5); ALKALINE PHOSPHATASE 127 IU/L (46-116); ANION GAP 5 (8-16); ASPARTATE AMINO TRANSFERASE 81 U/L (10-37); BILIRUBIN,TOTAL 1.4 MG/DL (0.1-1.0); BLOOD UREA NITROGEN 25 MG/DL (7-18); BUN/CREATININE RATIO 18.1 (5.4-32.0); CHLORIDE 84 MMOL/L (99-107); CREATININE 1.38 MG/DL (0.60-1.10); GLUCOSE 159 MG/DL (70-104); MAGNESIUM 1.5 MG/DL (1.5-2.4); TOTAL CARBON DIOXIDE 30.7 MMOL/L (24-32); TOTAL PROTEIN 5.2 G/DL (6.4-8.2); eGFR 50 ML/MIN
[2017-09-04 12:44] LABS: SODIUM 120 MMOL/L (135-145)
[2017-09-04] MEDS ORDERED: LIDOcaine 2% 10ml TOPICAL JELLY (Urojet) MM ONE (12:45)
[2017-09-04] MEDS ORDERED: CefTRIAXone 2gm/D5W 50ml 50 ML IV ONE (13:50)
[2017-09-04] MEDS ORDERED: ondansetron/PF 4mg/2ml inj IV PRN (14:35)
[2017-09-04] MEDS ORDERED: dextrose 50%-water 50ml dispensing syringe IV PRN ×2 (14:35)
[2017-09-04] MEDS ORDERED: magnesium 2GM in 50ml NS 50 ML IV PRN (14:35)
[2017-09-04] MEDS ORDERED: magnesium Cl slow-release 64mg tablet PO PRN (14:35)
[2017-09-04] MEDS ORDERED: magnesium 4gm in 100ml NS 100 ML IV PRN (14:35)
[2017-09-04] MEDS ORDERED: mag hydrox/Alum hydrox/simeth 30ml oral suspension PO PRN (14:35)
[2017-09-04] MEDS ORDERED: potassium Cl 40MEQ/NS 500ml 500 ML IV PRN ×2 (14:35)
[2017-09-04] MEDS ORDERED: HYDROcodone/acetaminophen 5mg/325mg tablet PO PRN (14:35)
[2017-09-04] MEDS ORDERED: magnesium hydroxide 30ml (MOM) UD suspension PO PRN (14:35)
[2017-09-04] MEDS ORDERED: acetaminophen 325mg tablet PO PRN ×2 (14:35)
[2017-09-04] MEDS ORDERED: dextrose ORAL solution 15 GM/59 ML bottle PO PRN ×2 (14:35)
[2017-09-04] MEDS ORDERED: potassium Cl 20 mEq SR tablet PO PRN ×2 (14:35)
[2017-09-04] MEDS ORDERED: glucagon, human recombinant 1mg kit SUBCUT PRN (14:35)
[2017-09-04] MEDS ORDERED: MESSAGE TO PHARMACY PO ONE (14:35)
[2017-09-04 14:56] LABS: % IRON SATURATION 32 % (11-46); IRON 47 UG/DL (53-167); TOTAL IRON BINDING CAPACITY 145 UG/DL (259-388)
[2017-09-04 15:04] LABS: HEMOGLOBIN A1C 5.9 % (4.5-6.2)
[2017-09-04 15:15] LABS: OSMOLALITY 252 MOSM/K (280-300)
[2017-09-04] MEDS: hydrALAZINE 20mg/ml inj. IV SCH ×2 (15:18→21:35)
[2017-09-04 15:28] LABS: CHOL/HDL RATIO 3.7 (0.00-4.99); CHOLESTEROL 228 MG/DL (0-200); HDL CHOLESTEROL 62 MG/DL (35-60); LDL CHOLESTEROL 114 MG/DL (50-100); TRIGLYCERIDES 161 MG/DL (20-135)
[2017-09-04 15:33] LABS: SODIUM 120 MMOL/L (135-145)
[2017-09-04 16:07] LABS: CLARITY,URINE CLEAR (Clear); COLOR,URINE YELLOW (Yellow); GLUCOSE, URINE 100 mg/dl (Neg); KETONES,URINE NEGATIVE (Neg); LEUKOCYTE ESTERASE ,URINE NEGATIVE (Neg); NITRITES, URINE NEGATIVE (Neg); OCCULT BLOOD,URINE TRACE-LYSED (Neg); PROTEIN,URINE 30 mg/dl (Neg); UROBILINOGEN,URINE 0.2 E.U/dL (0.2-1.0)
[2017-09-04 16:13] LABS: UA COLLECTION TYPE FOLEY CATH
[2017-09-04 16:14] LABS: BACTERIA,URINE NONE SEEN /HPF (Neg); MUCUS STRANDS FEW /LPF (Neg); RBC,URINE NONE SEEN /HPF (0-2); SQUAMOUS EPITHELIAL CELL,UR NONE SEEN /LPF (FEW); WBC,URINE 0-4 /HPF (0-4)
[2017-09-04 17:38] VITALS: BP 151/88
[2017-09-04 17:54] VITALS: BP 151/88
[2017-09-04 20:00] VITALS: BP_SYST 126; BP_SYST 139; BP_DIAS 64; BP_DIAS 72
[2017-09-04 21:00] VITALS: BP 125/84
[2017-09-04] MEDS: insulin glargine (Lantus) pen - multi-dose SQ SCH (21:33)
[2017-09-04] MEDS: sodium chloride 1gm tablet PO SCH (21:34)
[2017-09-05] VITALS (9 sets, daily range): BP systolic 116–142; BP diastolic 68–89
[2017-09-05] MEDS: hydrALAZINE 20mg/ml inj. IV SCH ×4 (02:48→20:59)
[2017-09-05 06:12] LABS: BASOPHILS % (AUTO) 0 % (0-1); EOSINOPHILS % (AUTO) 0 % (0-6); HEMOGLOBIN 7.9 g/dl (14.0-17.9); LYMPHOCYTES # (AUTO) 0.4 X10'3 (1.1-4.8); LYMPHOCYTES % (AUTO) 2.6 % (21-51); MEAN CORPUSCULAR HEMOGLOBIN 32.8 PG (27.0-31.0); MEAN CORPUSCULAR HGB CONC 34.4 % (33.0-36.5); MEAN CORPUSCULAR VOLUME 95.3 FL (78-98); MEAN PLATELET VOLUME 8.2 FL (7.4-10.4); MONOCYTES # (AUTO) 0.4 X10'3 (0-0.9); MONOCYTES % (AUTO) 2.7 % (2-12); NEUTROPHILS # (AUTO) 13.3 X10'3 (1.8-7.7); NEUTROPHILS % (AUTO) 94.7 % (42-75); PLATELET COUNT 57 X10'3 (140-440); RED BLOOD COUNT 2.42 X10'6 (4.70-6.10); RED CELL DISTRIBUTION WIDTH 18.5 % (11.5-14.5)
[2017-09-05 06:44] LABS: ALANINE AMINOTRANSFERASE 67 U/L (12-78); ALBUMIN 2.4 G/DL (3.4-5.0); ALKALINE PHOSPHATASE 117 IU/L (46-116); ANION GAP 8 (8-16); ASPARTATE AMINO TRANSFERASE 80 U/L (10-37); BLOOD UREA NITROGEN 25 MG/DL (7-18); BUN/CREATININE RATIO 18.5 (5.4-32.0); CALCIUM 9.1 MG/DL (8.5-10.1); CHLORIDE 86 MMOL/L (99-107); CREATININE 1.35 MG/DL (0.60-1.10); GLUCOSE 139 MG/DL (70-104); MAGNESIUM 1.5 MG/DL (1.5-2.4); POTASSIUM 4.2 MMOL/L (3.5-5.1); SODIUM 122 MMOL/L (135-145); TOTAL CARBON DIOXIDE 28.1 MMOL/L (24-32); TOTAL PROTEIN 4.8 G/DL (6.4-8.2); eGFR 51 ML/MIN
[2017-09-05 06:56] LABS: TOTAL CELLS COUNTED 100
[2017-09-05 06:58] LABS: ANISOCYTOSIS 2+; PLATELET ESTIMATE DECREASED; POLYCHROMASIA 2+
[2017-09-05 07:05] LABS: ACANTHOCYTES 1+; HYPOCHROMASIA 1+; SCHISTOCYTES FEW; SMUDGE CELLS FEW
[2017-09-05] MEDS: lisinopril 5mg tablet PO SCH (07:56)
[2017-09-05] MEDS: multivitamins, therapeutics tablet PO SCH (07:56)
[2017-09-05] MEDS: sodium chloride 1gm tablet PO SCH ×3 (07:56→20:51)
[2017-09-05] MEDS: K and/or MAG REPLACEMENT MC SCH (08:00)
[2017-09-05] MEDS ORDERED: CefTRIAXone 2gm/D5W 50ml 50 ML IV SCH (08:00)
[2017-09-05] MEDS ORDERED: non-formulary drug (Multivitamin (Daily Multiple Vitamin) 1 TAB) PO SCH (08:00)
[2017-09-05] MEDS ORDERED: CefTRIAXone inj 2,000 MG in normal saline 100ml IV soln 100 ML IV SCH (08:00)
[2017-09-05] MEDS: aspirin 81mg tablet.DR PO SCH (08:00)
[2017-09-05] MEDS ORDERED: levoFLOXACIN-Levaquin 750MG/D5 150 ML IV STA (09:35)
[2017-09-05 10:53] LABS: RED BLOOD COUNT 2.39 X10'6 (4.70-6.10); RETICULOCYTE % (AUTO) 4.6 % (0.5-1.5)
[2017-09-05] MEDS: insulin Lispro (HumaLOG) vial - multi-dose SQ SCH (11:05)
[2017-09-05] MEDS: diatr meglu/diatrizoate 30ml oral sol.-(3 dose) bottle PO SCH ×3 (13:02→18:48)
[2017-09-05] MEDS: vancomycin/NS 1 GM ADD-VANTAGE 250 ML IV SCH ×2 (13:47→17:12)
[2017-09-05] MEDS: HYDROcodone/acetaminophen 10/325mg tab PO PRN (16:07)
[2017-09-05] MEDS: vancomycin inj 1,250 MG in normal saline 250ml IV soln 250 ML IV SCH (16:48)
[2017-09-05] MEDS ORDERED: iohexol 300mg/ml 100ml inj. ONE (18:06)
[2017-09-05] MEDS ORDERED: ipratropium/albuterol 3ml nebule NEB PRN (18:25)
[2017-09-05] MEDS: tamsulosin 0.4mg capsule PO SCH (20:51)
[2017-09-05] MEDS: lactobacillus rhamnosus 10,000 MMU CELLS/CAPSULE PO SCH (20:51)
[2017-09-05] MEDS: iron polysaccharide complex 150mg capsule PO SCH (20:51)
[2017-09-05] MEDS: insulin glargine (Lantus) pen - multi-dose SQ SCH (21:00)
[2017-09-06] MEDS: HYDROcodone/acetaminophen 10/325mg tab PO PRN ×2 (00:34→04:35)
[2017-09-06] MEDS: vancomycin inj 1,250 MG in normal saline 250ml IV soln 250 ML IV SCH ×2 (00:35→14:00)
[2017-09-06] MEDS: hydrALAZINE 20mg/ml inj. IV SCH ×3 (02:48→14:00)
[2017-09-06 02:54] VITALS: BP 105/74
[2017-09-06 03:07] LABS: BASOPHILS % (AUTO) 0 % (0-1); EOSINOPHILS # (AUTO) 0.1 X10'3 (0-0.9); EOSINOPHILS % (AUTO) 1.1 % (0-6); HEMOGLOBIN 7.6 g/dl (14.0-17.9); LYMPHOCYTES # (AUTO) 0.3 X10'3 (1.1-4.8); LYMPHOCYTES % (AUTO) 2.7 % (21-51); MEAN CORPUSCULAR HEMOGLOBIN 33.1 PG (27.0-31.0); MEAN CORPUSCULAR VOLUME 94.6 FL (78-98); MEAN PLATELET VOLUME 7.9 FL (7.4-10.4); MONOCYTES # (AUTO) 0.4 X10'3 (0-0.9); NEUTROPHILS # (AUTO) 11.5 X10'3 (1.8-7.7); NEUTROPHILS % (AUTO) 93.2 % (42-75); PLATELET COUNT 53 X10'3 (140-440); RED BLOOD COUNT 2.29 X10'6 (4.70-6.10); WHITE BLOOD COUNT 12.3 X10'3 (4.5-11.0)
[2017-09-06 03:19] LABS: HEMATOCRIT 21.6 % (42.0-52.0)
[2017-09-06 03:25] LABS: ALANINE AMINOTRANSFERASE 56 U/L (12-78); ALBUMIN 2.2 G/DL (3.4-5.0); ALBUMIN/GLOBULIN RATIO 0.9 (1.1-1.5); ALKALINE PHOSPHATASE 115 IU/L (46-116); ANION GAP 10 (8-16); ASPARTATE AMINO TRANSFERASE 86 U/L (10-37); BLOOD UREA NITROGEN 26 MG/DL (7-18); BUN/CREATININE RATIO 17.8 (5.4-32.0); CALCIUM 9.2 MG/DL (8.5-10.1); CHLORIDE 87 MMOL/L (99-107); CREATININE 1.46 MG/DL (0.60-1.10); GLUCOSE 134 MG/DL (70-104); MAGNESIUM 1.5 MG/DL (1.5-2.4); POTASSIUM 4.2 MMOL/L (3.5-5.1); SODIUM 124 MMOL/L (135-145); TOTAL CARBON DIOXIDE 26.9 MMOL/L (24-32); TOTAL PROTEIN 4.7 G/DL (6.4-8.2); eGFR 47 ML/MIN
[2017-09-06 08:00] VITALS: BP_SYST 127; BP_SYST 132; BP_DIAS 62; BP_DIAS 70
[2017-09-06] MEDS: K and/or MAG REPLACEMENT MC SCH (08:00)
[2017-09-06] MEDS: lactobacillus rhamnosus 10,000 MMU CELLS/CAPSULE PO SCH ×2 (08:52→21:54)
[2017-09-06] MEDS: atorvastatin 20mg tablet PO SCH (08:52)
[2017-09-06] MEDS: lisinopril 5mg tablet PO SCH (08:52)
[2017-09-06] MEDS: multivitamins, therapeutics tablet PO SCH (08:52)
[2017-09-06] MEDS: aspirin 81mg tablet.DR PO SCH (08:52)
[2017-09-06] MEDS: levoFLOXACIN-Levaquin 750MG/D5 150 ML IV SCH (08:53)
[2017-09-06] MEDS: iron polysaccharide complex 150mg capsule PO SCH ×2 (09:16→21:54)
[2017-09-06] MEDS: sodium chloride 1gm tablet PO SCH ×3 (09:16→21:54)
[2017-09-06 10:03] VITALS: BP 132/70
[2017-09-06 11:48] VITALS: BP 100/63
[2017-09-06] MEDS: insulin Lispro (HumaLOG) vial - multi-dose SQ SCH (13:55)
[2017-09-06] MEDS: finasteride 5mg tablet PO SCH (14:00)
[2017-09-06] MEDS ORDERED: hydrALAZINE 20mg/ml inj. IV PRN (15:15)
[2017-09-06 17:24] LABS: OCCULT BLOOD STOOL NEGATIVE (Neg)
[2017-09-06 20:00] VITALS: BP 94/54
[2017-09-06] MEDS: tamsulosin 0.4mg capsule PO SCH (21:54)
[2017-09-06] MEDS: insulin glargine (Lantus) pen - multi-dose SQ SCH (22:00)
[2017-09-07] VITALS (11 sets, daily range): BP systolic 117–140; BP diastolic 62–84
[2017-09-07] MEDS: vancomycin inj 1,250 MG in normal saline 250ml IV soln 250 ML IV SCH (01:05)
[2017-09-07 06:04] LABS: BASOPHILS % (AUTO) 0 % (0-1); EOSINOPHILS % (AUTO) 0 % (0-6); HEMOGLOBIN 7.4 g/dl (14.0-17.9); LYMPHOCYTES # (AUTO) 0.3 X10'3 (1.1-4.8); LYMPHOCYTES % (AUTO) 3.2 % (21-51); MEAN CORPUSCULAR HEMOGLOBIN 32.5 PG (27.0-31.0); MEAN CORPUSCULAR HGB CONC 33.8 % (33.0-36.5); MEAN CORPUSCULAR VOLUME 96.1 FL (78-98); MEAN PLATELET VOLUME 7.5 FL (7.4-10.4); MONOCYTES # (AUTO) 0.2 X10'3 (0-0.9); NEUTROPHILS # (AUTO) 9.7 X10'3 (1.8-7.7); NEUTROPHILS % (AUTO) 94.8 % (42-75); PLATELET COUNT 61 X10'3 (140-440); RED BLOOD COUNT 2.28 X10'6 (4.70-6.10); RED CELL DISTRIBUTION WIDTH 19.7 % (11.5-14.5); WHITE BLOOD COUNT 10.2 X10'3 (4.5-11.0)
[2017-09-07 06:18] LABS: HEMATOCRIT 21.9 % (42.0-52.0)
[2017-09-07 06:34] LABS: ALANINE AMINOTRANSFERASE 44 U/L (12-78); ALBUMIN 2.1 G/DL (3.4-5.0); ALBUMIN/GLOBULIN RATIO 0.8 (1.1-1.5); ALKALINE PHOSPHATASE 116 IU/L (46-116); ANION GAP 9 (8-16); ASPARTATE AMINO TRANSFERASE 77 U/L (10-37); BILIRUBIN,TOTAL 1.2 MG/DL (0.1-1.0); BLOOD UREA NITROGEN 31 MG/DL (7-18); BUN/CREATININE RATIO 18.2 (5.4-32.0); CALCIUM 9.4 MG/DL (8.5-10.1); CHLORIDE 90 MMOL/L (99-107); GLUCOSE 121 MG/DL (70-104); MAGNESIUM 1.8 MG/DL (1.5-2.4); POTASSIUM 4.5 MMOL/L (3.5-5.1); SODIUM 126 MMOL/L (135-145); TOTAL CARBON DIOXIDE 27.4 MMOL/L (24-32); TOTAL PROTEIN 4.7 G/DL (6.4-8.2); eGFR 39 ML/MIN
[2017-09-07] MEDS: K and/or MAG REPLACEMENT MC SCH (07:05)
[2017-09-07] MEDS: insulin Lispro (HumaLOG) vial - multi-dose SQ SCH ×2 (08:47→19:11)
[2017-09-07] MEDS: levoFLOXACIN-Levaquin 750MG/D5 150 ML IV SCH (08:49)
[2017-09-07] MEDS: sodium chloride 1gm tablet PO SCH ×3 (08:49→21:38)
[2017-09-07] MEDS: atorvastatin 20mg tablet PO SCH (08:49)
[2017-09-07] MEDS: aspirin 81mg tablet.DR PO SCH (08:50)
[2017-09-07] MEDS: cyanocobalamin 500mcg tablet PO SCH (08:50)
[2017-09-07] MEDS: lactobacillus rhamnosus 10,000 MMU CELLS/CAPSULE PO SCH ×2 (08:50→21:38)
[2017-09-07] MEDS: finasteride 5mg tablet PO SCH (08:50)
[2017-09-07] MEDS: multivitamins, therapeutics tablet PO SCH (08:50)
[2017-09-07] MEDS: iron polysaccharide complex 150mg capsule PO SCH ×2 (08:50→21:37)
[2017-09-07] MEDS: folic acid 1mg tablet PO SCH (08:50)
[2017-09-07] MEDS: lisinopril 5mg tablet PO SCH (08:51)
[2017-09-07] MEDS ORDERED: VANCOMYCIN LEVEL IV NR (12:30)
[2017-09-07 13:00] LABS: MEAN CORPUSCULAR HEMOGLOBIN 32.8 PG (27.0-31.0); MEAN CORPUSCULAR HGB CONC 34.4 % (33.0-36.5); MEAN CORPUSCULAR VOLUME 95.6 FL (78-98); MEAN PLATELET VOLUME 7.5 FL (7.4-10.4); PLATELET COUNT 64 X10'3 (140-440); RED BLOOD COUNT 2.08 X10'6 (4.70-6.10); RED CELL DISTRIBUTION WIDTH 19.4 % (11.5-14.5)
[2017-09-07 13:07] LABS: HEMATOCRIT 19.9 % (42.0-52.0); HEMOGLOBIN 6.8 g/dl (14.0-17.9)
[2017-09-07] MEDS: tamsulosin 0.4mg capsule PO SCH (21:38)
[2017-09-07] MEDS: insulin glargine (Lantus) pen - multi-dose SQ SCH (21:42)
[2017-09-07 22:22] LABS: HEMATOCRIT 24.6 % (42.0-52.0); HEMOGLOBIN 8.5 g/dl (14.0-17.9); MEAN CORPUSCULAR HEMOGLOBIN 32.1 PG (27.0-31.0); MEAN CORPUSCULAR HGB CONC 34.5 % (33.0-36.5); MEAN CORPUSCULAR VOLUME 93.1 FL (78-98); MEAN PLATELET VOLUME 7.4 FL (7.4-10.4); PLATELET COUNT 63 X10'3 (140-440); RED BLOOD COUNT 2.65 X10'6 (4.70-6.10); RED CELL DISTRIBUTION WIDTH 19.3 % (11.5-14.5); WHITE BLOOD COUNT 11.4 X10'3 (4.5-11.0)
[2017-09-08] MEDS ORDERED: VANCOMYCIN 750MG IV in NS 250 ML IV SCH (01:00)
[2017-09-08] MEDS ORDERED: VANCOMYCIN LEVEL IV SCH (03:00)
[2017-09-08 05:25] LABS: HEP B CORE AB, TOT Negative (Negative); HEPATITIS C ANTIBODY <0.1 s/co ratio (0.0-0.9)
[2017-09-08] MEDS ORDERED: vancomycin inj 1,250 MG in normal saline 250ml IV soln 250 ML IV PRN (06:00)
[2017-09-08 06:31] LABS: BASOPHILS % (AUTO) 0 % (0-1); EOSINOPHILS # (AUTO) 0.2 X10'3 (0-0.9); EOSINOPHILS % (AUTO) 1.6 % (0-6); HEMATOCRIT 24.5 % (42.0-52.0); HEMOGLOBIN 8.4 g/dl (14.0-17.9); LYMPHOCYTES # (AUTO) 0.3 X10'3 (1.1-4.8); LYMPHOCYTES % (AUTO) 2.8 % (21-51); MEAN CORPUSCULAR HGB CONC 34.4 % (33.0-36.5); MEAN CORPUSCULAR VOLUME 92.9 FL (78-98); MEAN PLATELET VOLUME 7.7 FL (7.4-10.4); MONOCYTES # (AUTO) 0.3 X10'3 (0-0.9); MONOCYTES % (AUTO) 2.8 % (2-12); NEUTROPHILS % (AUTO) 92.8 % (42-75); PLATELET COUNT 63 X10'3 (140-440); RED BLOOD COUNT 2.64 X10'6 (4.70-6.10); RED CELL DISTRIBUTION WIDTH 19.3 % (11.5-14.5); WHITE BLOOD COUNT 10.8 X10'3 (4.5-11.0)
[2017-09-08 06:57] LABS: ALANINE AMINOTRANSFERASE 45 U/L (12-78); ALBUMIN 2.1 G/DL (3.4-5.0); ALBUMIN/GLOBULIN RATIO 0.8 (1.1-1.5); ALKALINE PHOSPHATASE 143 IU/L (46-116); ANION GAP 10 (8-16); ASPARTATE AMINO TRANSFERASE 84 U/L (10-37); BILIRUBIN,TOTAL 1.6 MG/DL (0.1-1.0); BLOOD UREA NITROGEN 37 MG/DL (7-18); CALCIUM 9.9 MG/DL (8.5-10.1); CHLORIDE 92 MMOL/L (99-107); CREATININE 1.76 MG/DL (0.60-1.10); GLUCOSE 126 MG/DL (70-104); POTASSIUM 4.5 MMOL/L (3.5-5.1); SODIUM 129 MMOL/L (135-145); TOTAL CARBON DIOXIDE 27.2 MMOL/L (24-32); TOTAL PROTEIN 4.6 G/DL (6.4-8.2); VANCOMYCIN,RANDOM 23.3 UG/ML; eGFR 38 ML/MIN
[2017-09-08] MEDS: cyanocobalamin 500mcg tablet PO SCH (07:14)
[2017-09-08] MEDS: multivitamins, therapeutics tablet PO SCH (07:14)
[2017-09-08] MEDS: aspirin 81mg tablet.DR PO SCH (07:14)
[2017-09-08] MEDS: sodium chloride 1gm tablet PO SCH ×2 (07:14→12:24)
[2017-09-08] MEDS: folic acid 1mg tablet PO SCH (07:14)
[2017-09-08] MEDS: lactobacillus rhamnosus 10,000 MMU CELLS/CAPSULE PO SCH (07:14)
[2017-09-08] MEDS: lisinopril 5mg tablet PO SCH (07:15)
[2017-09-08] MEDS: iron polysaccharide complex 150mg capsule PO SCH (07:15)
[2017-09-08] MEDS: atorvastatin 20mg tablet PO SCH (07:15)
[2017-09-08] MEDS: finasteride 5mg tablet PO SCH (07:15)
[2017-09-08] MEDS: levoFLOXACIN-Levaquin 750MG/D5 150 ML IV SCH (07:16)
[2017-09-08] MEDS: K and/or MAG REPLACEMENT MC SCH (07:32)
[2017-09-08] MEDS ORDERED: heparin sodium, porcine/PF 100unit/ml 5ML syringe ONE (07:33)
[2017-09-08 07:42] VITALS: BP 116/64
[2017-09-08 08:57] LABS: PLATELET ESTIMATE DECREASED
[2017-09-08 09:00] LABS: ANISOCYTOSIS 2+
[2017-09-08 09:03] LABS: ACANTHOCYTES FEW; BURR CELLS 1+; SCHISTOCYTES FEW; STOMATOCYTES 1+
[2017-09-08 09:04] LABS: LARGE PLATELETS FEW; MICROCYTOSIS 1+; POLYCHROMASIA FEW
[2017-09-08 11:33] VITALS: BP 134/88
[2017-09-08 12:30] LABS: HEMATOCRIT 23.7 % (42.0-52.0); HEMOGLOBIN 8.3 g/dl (14.0-17.9); MEAN CORPUSCULAR HEMOGLOBIN 32.1 PG (27.0-31.0); MEAN CORPUSCULAR HGB CONC 34.9 % (33.0-36.5); MEAN CORPUSCULAR VOLUME 91.9 FL (78-98); MEAN PLATELET VOLUME 7.4 FL (7.4-10.4); PLATELET COUNT 66 X10'3 (140-440); RED BLOOD COUNT 2.58 X10'6 (4.70-6.10); RED CELL DISTRIBUTION WIDTH 19.6 % (11.5-14.5); WHITE BLOOD COUNT 10.3 X10'3 (4.5-11.0)
[2017-09-08 13:30] LABS: AFP,SERUM, TUMOR MARKER 1.6 ng/mL (0.0-8.3); CARBOHYDRATE ANTIGEN 19-9 292 U/mL (0-35); CARCINOEMBRYONIC ANTIGEN 4.3 ng/mL (0.0-4.7)
[2017-09-08 18:00] VITALS: BP 131/79
[2017-09-08] MEDS ORDERED: acetaminophen 325mg tablet PO PRN (22:50)
[2017-09-09] MEDS: morphine 10mg/0.5ml (conc. morphine) oral syringe PO PRN ×3 (02:15→06:30)
[2017-09-09] MEDS: LORazepam 1 MG tablet PO PRN ×2 (02:24→05:18)
[2017-09-09 05:22] LABS: % FREE PSA 24.2 % (.); A/G RATIO 1.4 (0.7-1.7); ALBUMIN 2.4 g/dL (2.9-4.4); BETA GLOBULIN 0.6 g/dL (0.7-1.3); GAMMA GLOBULIN 0.3 g/dL (0.4-1.8); GLOBULIN, TOTAL 1.7 g/dL (2.2-3.9); M-SPIKE Not Observed g/dL (Not Observed); PROTEIN, TOTAL, SERUM 4.1 g/dL (6.0-8.5); PSA, FREE 0.92 ng/mL
[2017-09-09 08:00] VITALS: BP 140/89
[2017-09-09] MEDS: docusate sod 100mg capsule PO SCH ×2 (08:00→20:00)
[2017-09-09] MEDS: sennosides/docusate sodium tablet PO SCH ×2 (08:00→20:00)
[2017-09-09 11:17] LABS: CANCER ANTIGEN 125 181.3 U/mL (Not Estab.); CARCINOEMBRYONIC ANTIGEN 4.4 ng/mL (0.0-4.7)
[2017-09-09] MEDS ORDERED: VANCOMYCIN LEVEL IV NR (12:30)
[2017-09-10] MEDS: morphine 10mg/0.5ml (conc. morphine) oral syringe PO PRN (05:33)
[2017-09-10 07:00] VITALS: BP 121/77
[2017-09-10] MEDS: docusate sod 100mg capsule PO SCH (08:00)
[2017-09-10] MEDS ORDERED: levoFLOXACIN-Levaquin 750MG/D5 150 ML IV SCH (08:00)
[2017-09-10] MEDS: sennosides/docusate sodium tablet PO SCH (08:00)
== END 2017-09-10 13:30 | disposition hospice, inpatient (51) | DRG 871 ==
LOC: ER 11:18 → ED HOLD 14:33 → MED 3N 16:59
PROVIDERS: ADMIT Legal Medicine; ATTEND Family Medicine
PROC: BW211ZZ Computerized Tomography (CT Scan) of Abdomen and Pelvis using Low Osmolar Contrast (ICD-10-PCS; 2017-09-05)
PROC: 30233N1 Transfusion of Nonautologous Red Blood Cells into Peripheral Vein, Percutaneous Approach (ICD-10-PCS; principal; 2017-09-07)
PROC: CD271ZZ Tomographic (Tomo) Nuclear Medicine Imaging of Gastrointestinal Tract using Technetium 99m (Tc-99m) (ICD-10-PCS; 2017-09-08)
DX: A41.9 Sepsis, unspecified organism (principal); G93.40 Encephalopathy, unspecified; E43 Unspecified severe protein-calorie malnutrition; I50.33 Acute on chronic diastolic (congestive) heart failure; E22.2 Syndrome of inappropriate secretion of antidiuretic hormone; C78.7 Secondary malignant neoplasm of liver and intrahepatic bile duct; E11.22 Type 2 diabetes mellitus with diabetic chronic kidney disease; D69.6 Thrombocytopenia, unspecified; I13.0 Hypertensive heart and chronic kidney disease with heart failure and stage 1 through stage 4 chronic kidney disease, or unspecified chronic kidney disease; C34.90 Malignant neoplasm of unspecified part of unspecified bronchus or lung; N39.0 Urinary tract infection, site not specified; K62.5 Hemorrhage of anus and rectum; R44.3 Hallucinations, unspecified; E11.65 Type 2 diabetes mellitus with hyperglycemia; F03.90 Unspecified dementia, unspecified severity, without behavioral disturbance, psychotic disturbance, mood disturbance, and anxiety; D50.9 Iron deficiency anemia, unspecified; D63.8 Anemia in other chronic diseases classified elsewhere; E78.5 Hyperlipidemia, unspecified; K57.30 Diverticulosis of large intestine without perforation or abscess without bleeding; R74.0 Nonspecific elevation of levels of transaminase and lactic acid dehydrogenase [LDH]; N18.3 Chronic kidney disease, stage 3 (moderate); D18.1 Lymphangioma, any site; N40.0 Benign prostatic hyperplasia without lower urinary tract symptoms; Z51.5 Encounter for palliative care; Z66 Do not resuscitate; Z88.0 Allergy status to penicillin; Z79.899 Other long term (current) drug therapy; Z79.82 Long term (current) use of aspirin; Z87.891 Personal history of nicotine dependence; Z68.26 Body mass index [BMI] 26.0-26.9, adult
CPT/HCPCS: 36415; 70450; 71045; 71250; 74176; 74177; 76700; 78278; 80053; 80061; 80202; 81001; 82103; 82140; 82272; 82378; 82436; 82530; 82533; 82570; 82607; 82746; 82948; 83036; 83540; 83550; 83735; 83880; 83930; 84145; 84153; 84154; 84155; 84165; 84295; 84484; 85025; 85027; 85045; 86301; 86304; 86704; 86803; 86885; 86900; 86901; 86920; 87070; 93005; 93306; 94760; 96360; 97110; 97162; 97530; 99285; A4315; A6212; A6213; A9560; J0360; J0696; J1642; J1815; J1956; J3370; J7030; P9016; Q9963; Q9967